=== PATIENT | female | born 1950 | race Caucasian/White ===

== ENCOUNTER 2016-11-22 06:52 | Day surgery (SDC) | payer MEDICARE ==
--- NOTE | ~2016-11-22 | OP ---
Record Of [facility] [address] [place]. [address] NAME: KRISHNA EMMANUEL : 50 STATUS : [facility] PAT#: [id number] AGE: 66 ADM/REG DATE : 11/22/16 MR#: [id number] REPORT SERV DATE: 11/22/16 DICTATED BY: FRANCK ANDRES DATE: 11/22/16 REPORT STATUS : Draft TRANSCRIBED BY: MODL DATE: 11/22/16 DATE OF PROCEDURE: 11/22/2016 SURGEON: Franck Andres MD SERVICE: Otolaryngology. PREOPERATIVE DIAGNOSES: 1. Left tympanic membrane perforation. 2. Mixed hearing loss. POSTOPERATIVE DIAGNOSES: 1. Left tympanic membrane perforation. 2. Mixed hearing loss. 3. Medialized malleus. PROCEDURE PERFORMED: 1. Left tympanoplasty with fascia and cartilage. 2. Cartilage harvested from the tragus. INDICATIONS FOR PROCEDURE: The patient is a 66-year-old female, with a longstanding history of left tympanic membrane perforation with documented makes hearing loss. She presents to the operating room for surgical management. ANESTHESIA: General. COMPLICATIONS: None. BLOOD LOSS: 12 mL. RETAINED ITEMS: None. DESCRIPTION OF PROCEDURE: The patient was identified in preoperative holding where informed consent was ensured. She was brought to the operating room, placed on the operating table in supine position. General endotracheal anesthesia was induced without difficulty. A time out was performed to identify the patient and discuss operative plan. The patient was then prepped and draped in the standard sterile surgical fashion. Prior to proceeding, the facial nerve electrodes were affixed to the orbicular oculi and orbicularis auris muscles. These were then placed into the NIMs monitoring machine and finger tapped with good responses. The patient nerve monitor was used throughout the remainder the procedure for monitoring. The operative microscope was brought in the field and the ear canal was examined. This was injected in four quadrants with 1% lidocaine with 1:100,000 epinephrine. Additionally cerumen was cleaned. The tympanic membrane perforation was seen to be approximately 40% to 50% of the posterior tympanic membrane. The malleus handle was also quite medialized. A Record Of [facility] [address] [facility] [place]. [address] NAME: KRISHNA EMMANUEL : 50 STATUS : [facility] PAT#: [id number] AGE: 66 ADM/REG DATE : 11/22/16 MR#: [id number] REPORT SERV DATE: 11/22/16 DICTATED BY: FRANCK ANDRES DATE: 11/22/16 REPORT STATUS : Draft TRANSCRIBED BY: PAT DATE: 11/22/16 planned vascular strip was made superior to the malleus and the inferior limb at the inferior portion of the malleus at approximately the 6 o'clock position. It was carried laterally toward the bony cartilaginous junction. A Weck-Fadumo was placed. Attention was then turned to the postauricular incision. This was carried down to the level of temporalis fascia superiorly and the mastoid tip inferiorly. A large piece of temporalis fascia was harvested and set on the back table for future use. This was thinned appropriately. A Palva flap was made, and a periosteal elevator was used to expose the posterior aspect of the external auditory canal. This skin of the posterior external auditory canal was then elevated toward the anulus. The vascular strip was retracted laterally out of the field. The tympanic membrane anulus was elevated posteriorly, but there was no additional portion of the tympanic membrane and tensor. A small incision was made in the annulus, and the superior and anterior portions were retracted out of the surgical bed. The remaining tympanic membrane perforation was then slightly perforated to freshen the edges. The palpation of the ossicular chain showed that the chain appeared to be intact. There was no good visualization of the stapes footplate or the round window, however, the ossicles do appear to be mobile. We then proceeded to harvest a tragal cartilage graft. An incision was made approximately 2 mm inferior to the lateral aspect of the cartilage to preserve normal contour. A combination of sharp and blunt dissection was used to harvest a large piece of tragal cartilage, it was set on the back field for later use. We then proceeded to perform the reconstructive portion of this procedure. The cartilage graft was appropriately trimmed and a small incision was made in the central portion to allow for placement under the medialized malleus. Gelfoam was placed in the middle ear cavity at this point. The previously harvested fascia graft was then trimmed to appropriate size and placed also lateral to the cartilage graft, but medial to the remaining tympanic membrane. This was confirmed to be in good position. All edges were tucked appropriately. Additional Gel-Foam was placed both in the middle ear and in the anterior portion of the external auditory canal. The vascular strip was placed into appropriate position, and additional Gelfoam, and bacitracin were used to fill the external auditory canal. The postauricular incision was then closed in interrupted fashion with 3-0 Vicryl sutures. Skin was reapproximated with 5-0 chromic in a running locked fashion. The tragal cartilage harvest site was reapproximated with 5-0 fast acting gut. A gauze-type dressing was placed. The patient was turned over to Anesthesia for awakening and extubation. She was transferred to the PACU in stable condition. DISPOSITION: She will follow up in approximately six weeks for a postoperative evaluation. /PAT Franck Andres MD Record Of Operation [address] [address] NAME: KRISHNA EMMANUEL : 50 STATUS : [facility] PAT#: [id number] AGE: 66 ADM/REG DATE : 11/22/16 MR#: [id number] REPORT SERV DATE: 11/22/16 DICTATED BY: FRANCK ANDRES DATE: 11/22/16 REPORT STATUS : Draft TRANSCRIBED BY: PAT DATE: 11/22/16 / [id number] CC: MD Nathan Freeman DO
[~2016-11-22 06:52] MED LIST: ADVIL PO; ALIGN4 MG PO; ASAB PO; CRANBERRY300 MG PO; CYMBALTA60 PO; DIABETA5 PO; FIBERCON PO; GLUCOPHAGE1000 MG PO; LIPITOR40 PO; MULTIPLE VIT PO; PEP20 PO; SUPHEDRIN PO; ZESTORETIC PO
[2017-02-03] MEDS ORDERED: FIBERCON PO (14:29)
[2017-02-03] MEDS ORDERED: CALTRA600D PO (14:31)
[2017-02-03] MEDS ORDERED: VITAMIN D400 UNI1 PO (14:32)
[2017-02-03] MEDS ORDERED: LIPITOR40 PO (14:34)
== END 2016-11-22 13:43 | disposition home or self-care (01) ==
LOC: SDC 06:52
PROVIDERS: Otolaryngology
PROC: 09U807Z Supplement Left Tympanic Membrane with Autologous Tissue Substitute, Open Approach (ICD-10-PCS; principal; 2016-11-22 07:45)
DX: H72.02 Central perforation of tympanic membrane, left ear (principal); H90.8 Mixed conductive and sensorineural hearing loss, unspecified; I10 Essential (primary) hypertension; E11.9 Type 2 diabetes mellitus without complications; F32.9 Major depressive disorder, single episode, unspecified; K21.9 Gastro-esophageal reflux disease without esophagitis; E66.9 Obesity, unspecified; M19.90 Unspecified osteoarthritis, unspecified site; Z88.5 Allergy status to narcotic agent; Z90.710 Acquired absence of both cervix and uterus; Z90.49 Acquired absence of other specified parts of digestive tract; Z88.8 Allergy status to other drugs, medicaments and biological substances; Z68.41 Body mass index [BMI] 40.0-44.9, adult
CPT/HCPCS: 80048; 82962; 85014; 85018; 85730; 93005; A9270-GY; J0690; J2250; J2370; J2405; J2710; J3010